=== PATIENT | male | born 1945 | race Caucasian/White ===

== ENCOUNTER 2016-12-07 14:35 | Emergency (ER) | payer MEDICARE, OTHER ==
[~2016-12-07] VITALS: Ht 180.3 cm; Wt 97.5 kg
[2016-12-07 14:46] VITALS: BP 132/72; PULSE 89; RESP 16; TEMP 98.4; O2SAT 100
[2016-12-07] MEDS ORDERED: VICT18IN SQ (15:07)
[2016-12-07] MEDS ORDERED: AMLO10TA2 PO (15:07)
[2016-12-07] MEDS ORDERED: PROT40TA PO (15:07)
[2016-12-07] MEDS ORDERED: GABA600T PO (15:07)
[2016-12-07] MEDS ORDERED: TRIL150T PO (15:07)
[2016-12-07] MEDS ORDERED: SYNT175T PO (15:07)
[2016-12-07] MEDS ORDERED: NATE120T PO (15:07)
[2016-12-07] MEDS ORDERED: ROSU20 PO (15:07)
[2016-12-07] MEDS ORDERED: LOSA25TA PO (15:07)
--- NOTE | 2016-12-07 15:36 | PD ---
HPI Chief Complaint: Musculoskeletal Complaint Time Seen by Provider: 15:31 Travel History International Travel<30 days: No Contact w/Intl Traveler<30days: No Traveled to known affect area: No History of Present Illness HPI 71-year-old male presents to the emergency room for evaluation of left elbow pain, redness, and swelling the past 3 days. Patient denies any trauma or injury. He went to an urgent care earlier today where he was diagnosed with olecranon bursitis and told to come to the emergency room for further testing. He reports [id number] pain to the proximal elbow. Pain is worsened with flexion. Denies paresthesias. Patient reports associated temperature of 100.6 yesterday. No fever today. No nausea or vomiting. History of type 2 diabetes. PFSH Past Medical History High Cholesterol: Yes Diabetes: Yes Patient Takes Glucophage: Yes GERD: Yes Hypertension: Yes Medical other: Yes (neuropathy) Tetanus Vaccination: < 5 Years Influenza Vaccination: Yes Past Surgical History Abdominal Surgery: Yes (abd hernia repair) Ear Surgery: Yes (both ears) Eye Surgery: Yes (cataracts) Other Surgery: Yes (bilat hands) Social History Alcohol Use: Yes Tobacco Use: Yes (quit 40 yrs ago smoked cigs and cigars) Substance Use: No Allergies-Medications (Allergen,Severity, Reaction): Coded Allergies: Penicillin (Verified Allergy, Unknown, 12/07/16) Reported Meds & Prescriptions Reported Meds & Active Scripts Active Clindamycin (Clindamycin HCl) 150 Mg Cap 300 Mg PO Q6H 10 Days Reported Losartan (Losartan Potassium) 25 Mg Tab 25 Mg PO DIRECTED Nateglinide 120 Mg Tab 120 Mg PO TIDAC Crestor (Rosuvastatin Calcium) 20 Mg Tab 20 Mg PO HS Synthroid (Levothyroxine Sodium) 175 Mcg Tab 175 Mcg PO DAILY Gabapentin 600 Mg Tab 600 Mg PO TID Victoza Inj (Liraglutide Inj) 18 Mg/3 Ml Pen 1.8 Mg SQ DAILY@0600 Trileptal (Oxcarbazepine) Unknown Strength Tab Unknown Dose PO DAILY Amlodipine (Amlodipine Besylate) 10 Mg Tab 10 Mg PO DAILY Protonix (Pantoprazole Sodium) 40 Mg Tab 40 Mg PO DAILY Review of Systems Except as stated in HPI: all other systems reviewed are Neg Physical Exam Narrative GENERAL: Well-nourished, well-developed male in no acute distress. Afebrile. Ambulatory. SKIN: There is a fluctuant area over the left olecranon. It is fluctuant but there is no pointing or drainage. There is a zone of inflammation around it but no lymphangitis. Area was outlined and purple marker. HEAD: Normocephalic. EYES: No scleral icterus. No injection or drainage. NECK: Supple, trachea midline. No JVD or lymphadenopathy. CARDIOVASCULAR: Regular rate and rhythm without murmurs, gallops, or rubs. RESPIRATORY: Breath sounds equal bilaterally. No accessory muscle use. EXTREMITY: Left elbow is mildly tender to palpation over the proximal region. Minimal tenderness over the olecranon. Patient can fully extend the left elbow. Pain with flexion greater than 90. There is mild to moderate edema of the olecranon. 2+ radial pulse. Data Data Last Documented VS Vital Signs Date Time Temp Pulse Resp B/P Pulse Ox O2 Delivery O2 Flow Rate FiO2 12/07/16 14:57 16 12/07/16 14:46 98.4 89 132/72 100 MDM Medical Decision Making Medical Screen Exam Complete: Yes Emergency Medical Condition: Yes Medical Record Reviewed: Yes Differential Diagnosis Olecranon bursitis versus septic arthritis unlikely versus cellulitis Narrative Course 71-year-old male presents to the emergency room for evaluation of left elbow swelling, pain, and redness for the past 3 days. Denies traumatic injury. Patient went to urgent care who recommended he come to the emergency room to evaluate for septic arthritis. Physical exam reveals a fluctuant area over the left olecranon. It is fluctuant but there is no pointing or drainage. There is a zone of inflammation around it but no lymphangitis. Area was outlined and purple marker. I have no concern for septic arthritis as patient has very little pain and can't fully extend his elbow and flex to 90. History and physical exam are more consistent with olecranon bursitis. Vital signs stable. Patient is overall well-appearing. It is reasonable to try an outpatient trial of antibiotics for cellulitis. I spoke to my attending physician, Dr. Weeks, evaluated the patient and agrees with assessment and plan. He was told to follow up with her primary care physician or return to the emergency room for worsening symptoms. He understands and agrees to this plan. Diagnosis Primary Impression: Olecranon bursitis of left elbow Referrals: Primary Care Physician Patient Instructions: Elbow Bursitis (GEN), General Instructions Additional Instructions: Rest and drink plenty of fluids. Take clindamycin as directed, until gone. Take Tylenol or ibuprofen with food as directed, as needed for pain. Apply ice to the affected area for 20 minutes at a time, as needed for pain and swelling. Follow-up with a primary care physician within one week. Return to the emergency room for worsening symptoms such as extension of redness outside purple line, fevers, nausea, vomiting, or increased pain. Med/Other Pt SpecificInfo: Prescription(s) given Scripts Clindamycin 150 Mg [id number] Mg PO Q6H 10 Days Ref 0 Prov:Zoë Weeks MD 12/07/16 Disposition: 01 DISCHARGE HOME Condition: Stable Sherrie Morgan December 07, 2016 15:36
[2016-12-07] MEDS ORDERED: CLIN1CAP5 PO (15:37)
== END 2016-12-07 15:48 | disposition home or self-care (01) ==
LOC: PHEFT 14:35
DX: M70.22 Olecranon bursitis, left elbow (principal); I10 Essential (primary) hypertension; E11.9 Type 2 diabetes mellitus without complications; E78.00 Pure hypercholesterolemia, unspecified; Z79.4 Long term (current) use of insulin
CPT/HCPCS: 99283